=== PATIENT | male | born 1950 | race Hispanic/Latino ===

== ENCOUNTER 2018-01-15 01:42 | Observation (INO) | payer OTHER ==
[2018-01-15 01:47] VITALS: BMI 36.8
--- NOTE | 2018-01-15 01:56 | ED PDOC ---
HPI:STROKE - Time Time: 01:53 - Historian Historian: Patient - Chief Complaint Chief Complaint: Slurred speech - Onset Date: 01/15/18 Time: 01:20 Onset: Today - Timing Timing: Currently Symptomatic - Context Context: Sitting - Location Location: Speech (Slurred) - Radiation Radiation: None - Severity of pain Maximum severity:: None Severity Current: None - TPA Reason tPA is not being Administered: NIH score of ZERO s/p examination by neurologist. - Notes: Notes:: 67 y/o male presents to the ED complaining of lightheadedness associated with slurred speech and blurry vision, onset 35 minutes ago. Patient reports he was working as the [employer] when he began to feel symptoms. Denies weakness, numbness and headache. Denies chest pain, shortness of breath, vision changes currently. PMD: Dr. Christina NIHSS Stroke Scale - Date/Time Evaluation Performed Date Performed: 01/15/18 Time Performed: 02:10 When Was NIHSS Performed: Code Stroke - How Severe is the Stroke Level of Consciousness: 0=Alert LOC to Questions: 0=Both comments correct LOC to commands: 0=Obeys both correctly Best Gaze: 0=Normal Visual: 0=No visual loss Facial: 0=Normal Motor Arm - Left: 0=No drift Motor Arm - Right: 0=No drift Motor Leg - Left: 0=No drift Motor Leg - Right: 0=No drift Limb Ataxia: 0=Absent Sensory: 0=Normal Best Language: 0=No aphasia Dysarthia: 0=Normal articulation Extinction & Inattention (Neglect): 0=Normal, no object Score: 0 rTPA Inclusion/Exclusion - Refusal of Treatment Patient Refused Treatment: No - Inclusion Criteria for Altepase Patient is 18 years or Older: Yes The Clinical Diagnosis of Ischemic Stroke That is Causing a Potentially Disabling Neurological Deficit: Yes Time of Onset is Well Established to be Less Than 270 Minute Before Treatment Would Begin: Yes Risk/Benefit Discussed With Patient/Family Member Present: Yes - Exclusion Criteria for Altepase Active Internal Bleeding: No Evidence of an Intracranial Hemorrhage: No Past Medical History Reviewed: Historical Data, Nursing Documentation, Vital Signs Vital Signs: Last Vital Signs Temp 97.9 F 01/15/18 01:46 Pulse 102 H 01/15/18 01:46 Resp 18 01/15/18 01:46 BP 143/99 H 01/15/18 01:46 Pulse Ox 97 01/15/18 01:46 - Medical History PMH: Diabetes (Type II) - Surgical History Surgical History: Cholecystectomy - Family History Family History: States: Unknown Family Hx - Social History Current smoker - smoking cessation education provided: No Ex-Smoker (has not smoked in the last 12 months): Yes (8 years ago) Alcohol: Occasional Drugs: Denies - Home Medications Home Medications: Ambulatory Orders Medication Instructions Recorded metFORMIN [glucOPHAGE] 850 mg PO BID 01/15/18 - Allergies Allergies/Adverse Reactions: Allergies Allergy/AdvReac Type Severity Reaction Status Date / Time No Known Allergies Allergy Verified 01/15/18 01:46 Review of Systems ROS Statement: Except As Marked, All Systems Reviewed And Found Negative Eyes: Positive for: Vision Change Neurological: Positive for: Change in Speech, Other (Lightheadedness). Negative for: Weakness, Numbness, Headache Physical Exam - Reviewed Nursing Documentation Reviewed: Yes Vital Signs Reviewed: Yes - Physical Exam Appears: Positive for: No Acute Distress Head Exam: Positive for: ATRAUMATIC, NORMOCEPHALIC Skin: Positive for: Normal Color, Warm, Dry Eye Exam: Positive for: Normal appearance, EOMI, PERRL Neck: Positive for: Normal, Painless ROM Cardiovascular/Chest: Positive for: Regular Rate, Rhythm. Negative for: Murmur Respiratory: Positive for: Normal Breath Sounds. Negative for: Respiratory Distress Gastrointestinal/Abdominal: Positive for: Normal Exam, Soft. Negative for: Tenderness Back: Positive for: Normal Inspection. Negative for: L CVA Tenderness, R CVA Tenderness Extremity: Positive for: Normal ROM, Other (Strength 5/5 in all extremities). Negative for: Deformity Neurologic/Psych: Positive for: Alert, grid inspector II-XII, Oriented, Cerebellar Tests ( normal), Gait (normal). Negative for: Motor/Sensory Deficits, Aphasia, Facial Droop - Laboratory Results Result Diagrams: 01/15/18 02:00 01/15/18 02:00 - ECG ECG Rhythm: Positive for: Normal QRS, Normal ST Segment O2 Sat by Pulse Oximetry: 97 (RA) Pulse Ox Interpretation: Normal - Radiology X-Ray: Interpreted by Me, Viewed By Me X-Ray Interpretation: No Acute Disease - Critical Care Total Time (In Min): 60 Documented Critical Care: Time excludes all time spent performint seperately billable procedures Medical Decision Making Medical Decision Making: Time: 015 Patient presenting with slurred speech, dizziness -concerned for possible CVA v. TIA -currently ABCs intact, patient placed on monitor immediately and sent for CT -Neuro consult initiated Plan: -- Type and Screen -- CT Head w/o (CODE STROKE) -- EKG -- CMP -- HEMOGLOBIN A1C -- LIPID PANEL TROPONIN I -- STROKE TEAM CONSULT -- CBC with differentials -- PTT Prothrombin Time -- CXR Portable -- Glucose, POC -- Sodium Chloride IV 100 mls/hr -- Learning And Development Analyst -- IV Insertion -- ED Obtain Labs Stat -- Glucose, Blood, POC -- Nursing Swallow Screening -- Vital Signs Q15 min Time: 0205 CT HEAD RESULTS FINDINGS: Question mild increased density in the left MCA on image 16 series 4 Brain: Mild volume loss No hemorrhage. No significant white matter disease. No edema. Ventricles: Normal. No ventriculomegaly. Bones/joints: Normal. No acute fracture. Sinuses: Normal as visualized. No acute sinusitis. Mastoid air cells: Normal as visualized. No mastoid effusion. Soft tissues: Normal. IMPRESSION: Question mildly hyperdense left MCA. Thrombus cannot be completely excluded. Correlate for acute left MCA infarction. Further evaluation as clinically indicated No intracranial hemorrhage.Please see discussion above. Dictated and Authenticated by: Alan Lala MD 01/15/2018 2:05 AM Eastern Time ([place] & [place]) Time: 021 Dr. Murrieta reviewed patient via Teleneurology, recommendations below. Agrees that patient is not candidate for TPA Plan: -- CTA Head/Neck Code Stroke -- Plavix 300 mg PO -- Sodium Chloride IV 100 mls/hr -- Aspirin 81 mg PO -- admit [Admit to Hospital] Routine Time: 244 CTA HEAD RESULTS FINDINGS: Right internal carotid artery: No acute findings. Atherosclerosis. Intracranial segment is patent with no significant stenosis. No aneurysm. Right anterior cerebral artery: No occlusion or significant stenosis. No aneurysm. Right middle cerebral artery: No occlusion or significant stenosis. No aneurysm. Right posterior cerebral artery: No occlusion or significant stenosis. No aneurysm. Right vertebral artery: Unremarkable as visualized. Left internal carotid artery: No acute findings. Atherosclerosis. Intracranial segment is patent with no significant stenosis. No aneurysm. Left anterior cerebral artery: No occlusion or significant stenosis. No aneurysm. Left middle cerebral artery: No occlusion or significant stenosis. No aneurysm. Left posterior cerebral artery:No occlusion or significant stenosis. No aneurysm. Left vertebral artery: Unremarkable as visualized. Basilar artery: No occlusion or significant stenosis. No aneurysm. IMPRESSION: No evidence for arterial occlusion or significant stenosis * Time: 244 CTA NECK RESULTS FINDINGS: VASCULATURE: Right common carotid artery: No significant stenosis. No dissection or occlusion. Right internal carotid artery: Minimal calcified plaque Extracranial segment is patent with no significant stenosis. No dissection or occlusion. Right external carotid artery: Unremarkable. No occlusion. Right vertebral artery: No significant stenosis. No dissection or occlusion. Left common carotid artery: No significant stenosis. No dissection or occlusion. Left internal carotid artery: Mild calcified plaque Extracranial segment is patent with no significant stenosis. No dissection or occlusion. Left external carotid artery: Unremarkable. No occlusion. Left vertebral artery: No significant stenosis. No dissection or occlusion. NECK: Bones/joints: No acute fracture. No dislocation. Soft tissues: Enlargement of the right lobe of the thyroid with superior mediastinal extension and mixed attenuation nodule measuring up to 12 mm CAROTID STENOSIS REFERENCE USING NASCET CRITERIA: % ICA stenosis = (1 - narrowest ICA diameter/diameter of distal cervical ICA) x 100. Mild - <50% stenosis. Moderate - 50-69% stenosis. Severe - 70-94% stenosis. Near occlusion - 95-99% stenosis. Occluded - 100% stenosis. IMPRESSION: No hemodynamically significant stenosis Incidental right-sided thyroid nodule as noted which may be further characterized on a nonurgent basis Thank you for allowing us to participate in the care of your patient. Dictated and Authenticated by: Alan Lala MD 01/15/2018 2:45 AM Eastern Time ([place] & [place]) Patient reports improvement in symptoms Case discussed with Dr. Cuevas who accepts admission Scribe Attestation: Documented by Nilton Bee acting as a scribe for Dr. Ted Morales MD. Provider Scribe Attestation: All medical record entries made by the Scribe were at my direction and personally dictated by me. I have reviewed the chart and agree that the record accurately reflects my personal performance of the history, physical exam, medical decision making, and the department course for this patient. I have also personally directed, reviewed, and agree with the discharge instructions and disposition. Disposition - Clinical Impression Clinical Impression: Slurred speech, Transient ischemic attack - Patient ED Disposition Is Patient to be Admitted: Yes - Disposition Disposition Time: 02:15 Condition: FAIR
[2018-01-15 02:16] LABS: BASO # 0.1 K/uL (0.0-0.2); BASO % 1.3 % (0.0-2.0); EOS # 0.2 K/uL (0.0-0.7); EOS % 2.2 % (0.0-4.0); HEMOGLOBIN 14.1 g/dL (12.0-18.0); LYMPH # 2.4 K/uL (1.0-4.3); LYMPH % 30.5 % (20.0-40.0); MEAN CELL VOLUME 83.6 fl (80.0-94.0); MEAN CORPUSCULAR HGB CONC 33.5 g/dL (33.0-37.0); MEAN PLATELET VOLUME 9.8 fl (7.2-11.7); MONO # 0.8 K/uL (0.0-0.8); MONO % 9.8 % (0.0-10.0); NEUT # 4.5 K/uL (1.8-7.0); NEUT % 56.2 % (50.0-75.0); NRBC % 0.1 % (0.0-0.0); RBC 5.04 Mil/uL (4.40-5.90); RED CELL DISTRIBUTION WIDTH 15.4 % (11.5-14.5)
[2018-01-15] MEDS: Sodium Chloride 0.9% 1,000 ML IV SCH ×3 (02:17→21:28)
[2018-01-15] MEDS ORDERED: Sodium Chloride 0.9% 1,000 ML IV STA (02:19)
[2018-01-15] MEDS ORDERED: Sodium Chloride 0.9% 50 ML IV ONE (02:20)
[2018-01-15] MEDS ORDERED: Iodixanol 320 MG/ML 100 ML BOTTLE IV ONE (02:20)
[2018-01-15 02:25] LABS: ALB/GLOB RATIO 1.3 (1.0-2.1); ALBUMIN 4.6 g/dL (3.5-5.0); CALCIUM 9.4 mg/dL (8.4-10.2); GFR AFRICAN-AMERICAN > 60; GFR NON-AFRICAN AMERICAN > 60; HDL CHOLESTEROL 46 MG/DL (30-70)
--- NOTE | 2018-01-15 02:26 | CP.PCM.CON ---
History of Present Illness - History of Present Illness History of Present Illness: Tele-Stroke Consultation Note: This is a telehealth visit conducted via [employer] bi-directional video conference. Mr. Nelson is a 67-year-old man with a past medical history of DM, who states that he noticed light-headedness and slurred speech about 30 minutes prior to arrival to the ED. His symptoms started to resolve, and by the time he was seen by the ED attending, his NIHSS was 0. When I saw the patient, he stated that he was feeling better and I did not notice any significant neurological deficits. CT scan of the head did not show any acute changes, but radiology was concerned for a possible left MCA hyperdensity. Review of Systems - Review of Systems All systems: reviewed and no additional remarkable complaints except Meds Allergies/Adverse Reactions: Allergies Allergy/AdvReac Type Severity Reaction Status Date / Time No Known Allergies Allergy Verified 01/15/18 01:46 - Medications Medications: Current Medications Aspirin (Aspirin Chewable) 81 mg PO STAT STA Stop: 01/15/18 02:19 Clopidogrel Bisulfate (Plavix) 300 mg PO ONCE ONE Stop: 01/15/18 02:19 Sodium Chloride (Sodium Chloride 0.9%) 1,000 mls @ 100 mls/hr IV .Q10H MARIBEL Last Admin: 01/15/18 02:17 Dose: 100 mls/hr Sodium Chloride (Sodium Chloride 0.9%) 1,000 mls @ 100 mls/hr IV .Q10H STA Stop: 01/15/18 12:18 Physical Exam - Neurological Exam Neurological exam: Alert, CN II-XII Intact, Oriented x3 Additional comments: Speech is fluent and not dysarthric. Visual aponte are intact. Sensation is intact throughout. Strength is symmetrical, coordination is intact. NIHSS = 0 - Psychiatric Exam Psychiatric exam: Normal Affect, Normal Mood Results - Vital Signs Recent Vital Signs: Last Vital Signs Temp 97.9 F 01/15/18 01:46 Pulse 93 H 01/15/18 02:14 Resp 18 01/15/18 02:14 BP 153/88 H 01/15/18 02:14 Pulse Ox 97 01/15/18 02:19 - Labs Result Diagrams: 01/15/18 02:00 Labs: Laboratory Results - last 24 hr 08/01/18 08/01/18 01:50 02:00 WBC 8.0 RBC 5.04 Hgb 14.1 Hct 42.1 MCV 83.6 MCH 28.0 MCHC 33.5 RDW 15.4 H Plt Count 187 MPV 9.8 Neut % (Auto) 56.2 Lymph % (Auto) 30.5 [place] % (Auto) 9.8 Eos % (Auto) 2.2 Baso % (Auto) 1.3 Neut # (Auto) 4.5 Lymph # (Auto) 2.4 [place] # (Auto) 0.8 Eos # (Auto) 0.2 Baso # (Auto) 0.1 POC Glucose (mg/dL) 158 H Assessment & Plan (1) Transient ischemic attack Assessment and Plan: Considering his symptoms were of sudden onset and lasted nearly an hour, I recommend the followin. Telemetry and Q1 hour neuro-checks 2. STAT CTA of the head/neck 3. MRI brain without contrast 4. Aspirin 81 mg now and load with Plavix 300 mg; continue aspirin 81 mg daily and Plavix 75 mg daily for 21 days. Then, aspirin 81 mg indefinitely per the CHANCE trial. 5. Check HbA1c, Lipid panel, B12, folate, vitamin D and homocysteine levels 6. PT/OT eval 7. Fluids with NS at 100 mL/hr 8. Statin for LDL<70 9. Echocardiogram 10. Case management consult Thank you. Status: Acute Priority: High
[2018-01-15 02:27] LABS: PARTIAL THROMBOPLASTIN TIME 32.9 Seconds (25.6-37.1); PROTHROMBIN TIME 11.5 Seconds (9.8-13.1)
[2018-01-15 02:35] LABS: LDL CHOLESTEROL 75 mg/dL (0-129)
[2018-01-15 02:43] LABS: ALT/SGPT 30 U/L (21-72); AST/SGOT 38 U/L (17-59); BLOOD UREA NITROGEN 17 mg/dl (9-20)
--- NOTE | 2018-01-15 04:08 | CP.PCM.HP ---
"History of Present Illness - History of Present Illness History of Present Illness: PMD: Greg Christina MD Chief Complaint: Slurred Speech The patient was seen and examined in the Ed HPI: 67 years old male with Hx of DM II, comes with 30mins of sudden unset of slurred speech with lightheadedness and blurring of the vision. no weakness of the extremities, no chest pain nor SOB, no headache. His symptoms were 75% relieved on arriving at the ED and completely resolved 20mins later. his NIHSS score was 0 in the ED. PMH: DM II PSH: Cholecystectomy SH: former Smoker; No alcohol; No illegal drug use; Live alone; work as a dispatcher for [employer]; Mother with dementia father with lung Cancer and NH Allergies: NKDA Medication: Reviewed Present on Admission - Present on Admission Any Indicators Present on Admission: No History of DVT/PE: No History of Uncontrolled Diabetes: No Urinary Catheter: No Decubitus Ulcer Present: No Review of Systems - Constitutional Constitutional: absent: Chills, Fever, Headache, Lethargy - EENT Eyes: Requires Corrective Lenses. absent: Blurred Vision, Diplopia, Floaters Ears: absent: Decreased Hearing, Ear Discharge, Tinnitus Nose/Mouth/Throat: absent: Epistaxis, Nasal Congestion - Cardiovascular Cardiovascular: Edema. absent: Chest Pain, Dyspnea, Lightheadedness - Respiratory Respiratory: absent: Cough, Dyspnea, Wheezing, Stridor - Gastrointestinal Gastrointestinal: absent: Constipation, Diarrhea, Nausea, Vomiting - Genitourinary Genitourinary: absent: Dysuria, Flank Pain, Urinary Frequency - Musculoskeletal Musculoskeletal: absent: Arthralgias, Myalgias, Stiffness - Integumentary Integumentary: absent: Pruritus, Rash, Skin Ulcer, Sores, Striae - Neurological Neurological: Dizziness. absent: Headaches Additional comments: Slurred speech, dizziness and lightheadedness - Psychiatric Psychiatric: absent: Anxiety, Depression, Panic Attacks - Endocrine Endocrine: absent: Palpitations, Polydipsia, Polyphagia, Polyuria - Hematologic/Lymphatic Hematologic: absent: Easy Bleeding, Easy Bruising Past Patient History - Past Medical History & Family History Past Medical History?: Yes - Past Social History Smoking Status: Former Smoker Chewing Tobacco Use: No Cigar Use: No Alcohol: Occasional Drugs: Denies Home Situation {Lives}: Alone - CARDIAC Hx Cardiac Disorders: No - PULMONARY Hx Respiratory Disorders: No - NEUROLOGICAL Hx Neurological Disorder: No - HEENT Hx HEENT Problems: No - RENAL Hx Chronic Kidney Disease: No - ENDOCRINE/METABOLIC Hx Diabetes Mellitus Type 2: Yes - HEMATOLOGICAL/ONCOLOGICAL Hx Blood Disorders: No - INTEGUMENTARY Hx Dermatological Problems: No - MUSCULOSKELETAL/RHEUMATOLOGICAL Hx Musculoskeletal Disorders: No - GASTROINTESTINAL Hx Gastrointestinal Disorders: No - GENITOURINARY/GYNECOLOGICAL Hx Genitourinary Disorders: No - PSYCHIATRIC Hx Psychophysiologic Disorder: No Hx Substance Use: No - SURGICAL HISTORY Hx Cholecystectomy: Yes - ANESTHESIA Hx Anesthesia: Yes Hx Anesthesia Reactions: No Meds Allergies/Adverse Reactions: Allergies Allergy/AdvReac Type Severity Reaction Status Date / Time No Known Allergies Allergy Verified 01/15/18 01:46 Physical Exam - Constitutional Appears: No Acute Distress - Head Exam Head Exam: ATRAUMATIC, NORMAL INSPECTION, NORMOCEPHALIC - Eye Exam Eye Exam: EOMI, Normal appearance Pupil Exam: NORMAL ACCOMODATION, PERRL - ENT Exam ENT Exam: Mucous Membranes Moist, Normal Exam - Neck Exam Neck exam: Positive for: Full Rom, Normal Inspection. Negative for: Lymphadenopathy, Tenderness - Respiratory Exam Respiratory Exam: Clear to Auscultation Bilateral. absent: Rales, Rhonchi, Wheezes - Cardiovascular Exam Cardiovascular Exam: REGULAR RHYTHM, +S1, +S2. absent: Gallop - GI/Abdominal Exam GI & Abdominal Exam: Normal Bowel Sounds, Soft. absent: Mass, Organomegaly, Tenderness - Rectal Exam Rectal Exam: Deferred - Extremities Exam Extremities exam: Positive for: full ROM, normal inspection Additional comments: Trace edema at the right lower extremity - Back Exam Back exam: NORMAL INSPECTION. absent: CVA tenderness (L), CVA tenderness (R) - Neurological Exam Neurological exam: Alert, CN II-XII Intact, Oriented x3, Reflexes Normal - Psychiatric Exam Psychiatric exam: Normal Affect, Normal Mood - Skin Skin Exam: Dry, Intact, Normal Color, Warm Results - Vital Signs Recent Vital Signs: Last Vital Signs Temp 97.9 F 01/15/18 01:46 Pulse 93 H 01/15/18 02:16 Resp 18 01/15/18 02:16 BP 146/98 H 01/15/18 02:16 Pulse Ox 97 01/15/18 02:53 - Labs Result Diagrams: 01/15/18 02:00 01/15/18 02:00 Labs: Laboratory Results - last 24 hr 01/15/18 01/15/18 01/15/18 01:50 02:00 02:00 WBC 8.0 RBC 5.04 Hgb 14.1 Hct 42.1 MCV 83.6 MCH 28.0 MCHC 33.5 RDW 15.4 H Plt Count 187 MPV 9.8 Neut % (Auto) 56.2 Lymph % (Auto) 30.5 [place] % (Auto) 9.8 Eos % (Auto) 2.2 Baso % (Auto) 1.3 Neut # (Auto) 4.5 Lymph # (Auto) 2.4 [place] # (Auto) 0.8 Eos # (Auto) 0.2 Baso # (Auto) 0.1 PT INR APTT Sodium 141 Potassium 4.5 Chloride 102 Carbon Dioxide 25 Anion Gap 19 BUN 17 Creatinine 0.9 Est GFR ( Amer) > 60 Est GFR (Non-Af Amer) > 60 POC Glucose (mg/dL) 158 H Random Glucose 158 H Calcium 9.4 Total Bilirubin 0.8 AST 38 ALT 30 Alkaline Phosphatase 102 Troponin I < 0.0120 Total Protein 8.2 Albumin 4.6 Globulin 3.6 Albumin/Globulin Ratio 1.3 Triglycerides 111 Cholesterol 146 LDL Cholesterol Direct 75 HDL Cholesterol 46 Blood Type Antibody Screen BBK History Checked 01/15/18 01/15/18 02:00 02:00 WBC RBC Hgb Hct MCV MCH MCHC RDW Plt Count MPV Neut % (Auto) Lymph % (Auto) [place] % (Auto) Eos % (Auto) Baso % (Auto) Neut # (Auto) Lymph # (Auto) [place] # (Auto) Eos # (Auto) Baso # (Auto) PT 11.5 INR 1.0 APTT 32.9 Sodium Potassium Chloride Carbon Dioxide Anion Gap BUN Creatinine Est GFR ( Amer) Est GFR (Non-Af Amer) POC Glucose (mg/dL) Random Glucose Calcium Total Bilirubin AST ALT Alkaline Phosphatase Troponin I Total Protein Albumin Globulin Albumin/Globulin Ratio Triglycerides Cholesterol LDL Cholesterol Direct HDL Cholesterol Blood Type O POSITIVE Antibody Screen Negative BBK History Checked No verified bt - Imaging and Cardiology CT scan - head Status: Image reviewed by me, Report reviewed by me Additional comment: EXAM: CT Head Without Intravenous Contrast EXAM DATE/TIME: 01/15/2018 1:47 AM FINDINGS: Question mild increased density in the left MCA on image 16 series 4 Brain: Mild volume loss No hemorrhage. No significant white matter disease. No edema. Ventricles: Normal. No ventriculomegaly. Bones/joints: Normal. No acute fracture. Sinuses: Normal as visualized. No acute sinusitis. Mastoid air cells: Normal as visualized. No mastoid effusion. Soft tissues: Normal. IMPRESSION: Question mildly hyperdense left MCA. Thrombus cannot be completely excluded. Correlate for acute left MCA infarction. Further evaluation as clinically indicated CTA Head & Neck Additional comment: EXAM: CT Angiography Head With Intravenous Contrast CLINICAL HISTORY: FINDINGS: Right internal carotid artery: No acute findings. Atherosclerosis. Intracranial segment is patent with no significant stenosis. No aneurysm. Right anterior cerebral artery: No occlusion or significant stenosis. No aneurysm. Right middle cerebral artery: No occlusion or significant stenosis. No aneurysm. Right posterior cerebral artery: No occlusion or significant stenosis. No aneurysm. Right vertebral artery: Unremarkable as visualized. Left internal carotid artery: No acute findings. Atherosclerosis. Intracranial segment is patent with no significant stenosis. No aneurysm. Left anterior cerebral artery: No occlusion or significant stenosis. No aneurysm. Left middle cerebral artery: No occlusion or significant stenosis. No aneurysm. Left posterior cerebral artery:No occlusion or significant stenosis. No aneurysm. Left vertebral artery: Unremarkable as visualized. Basilar artery: No occlusion or significant stenosis. No aneurysm. IMPRESSION: No evidence for arterial occlusion or significant stenosis MITCHEL GODIENZ | Preliminary Radiology Report Page 2 of 3 EXAM: CT Angiography Neck With Intravenous Contrast CLINICAL HISTORY: FINDINGS: VASCULATURE: Right common carotid artery: No significant stenosis. No dissection or occlusion. Right internal carotid artery: Minimal calcified plaque Extracranial segment is patent with no significant stenosis. No dissection or occlusion. Right external carotid artery: Unremarkable. No occlusion. Right vertebral artery: No significant stenosis. No dissection or occlusion. Left common carotid artery: No significant stenosis. No dissection or occlusion. Left internal carotid artery: Mild calcified plaque Extracranial segment is patent with no significant stenosis. No dissection or occlusion. Left external carotid artery: Unremarkable. No occlusion. Left vertebral artery: No significant stenosis. No dissection or occlusion. NECK: Bones/joints: No acute fracture. No dislocation. Soft tissues: Enlargement of the right lobe of the thyroid with superior mediastinal extension and mixed attenuation nodule measuring up to 12 mm CAROTID STENOSIS REFERENCE USING NASCET CRITERIA: % ICA stenosis = (1 - narrowest ICA diameter/diameter of distal cervical ICA) x 100. Mild - <50% stenosis. Moderate - 50-69% stenosis. Severe - 70-94% stenosis. Near occlusion - 95-99% stenosis. Occluded - 100% stenosis. IMPRESSION: No hemodynamically significant stenosis Incidental right-sided thyroid nodule as noted which may be further characterized on a nonurgent basis Chest x-ray Status: Image reviewed by me Additional comment: Left lung base infiltate, most probably atelectasis Assessment & Plan - Assessment and Plan (Free Text) Assessment: #. TIA #. CM II Plan: 67 years old male with Hx of DM II, comes with 30mins of sudden unset of slurred speech with lightheadedness and blurring of the vision. no weakness of the extremities, no chest pain nor SOB, no headache. His symptoms were 75% relieved on arriving at the ED and completely resolved 20mins later. his NIHSS score was 0 in the ED. #. TIA r/o CVA - Consult Neurology DDr Koria - CT head : Hyperdense MCA crrelation for acute Left MCA infarct - CTA Head and Neck: No significant stenosis - MRI head to follow - Neuro check Q1H - ECHO with bubble study - ASA - Plavix - Lipitor - OT/PT #. Dm II - Lispro insulin sliding scale according to Accucheck - Meformin - HbA1c #. DVT prophylaxis with Lovenox #. Code Status: Full - Date & Time Date: 01/15/18 Time: 04:08"
[2018-01-15] MEDS: Insulin Lispro (humaLOG) 100 Units/ml Inj SC SCH ×4 (08:25→22:00)
[2018-01-15] MEDS: Enoxaparin 40 mg Syringe SC SCH (08:30)
--- NOTE | 2018-01-15 09:29 | CARD ---
APPROVED REPORT Date of service: 01/15/2018 EKG Measurement Heart [id number] <Conclusion> Normal sinus rhythm Normal ECG
--- NOTE | 2018-01-15 10:04 | CT ---
Date of service: 01/15/2018 PROCEDURE: CT HEAD WITHOUT CONTRAST. HISTORY: code stroke COMPARISON: None available. TECHNIQUE: Axial computed tomography images were obtained through the head/brain without intravenous contrast. Radiation dose: Total exam DLP = 827 mGy-cm. This CT exam was performed using one or more of the following dose reduction techniques: Automated exposure control, adjustment of the mA and/or kV according to patient size, and/or use of iterative reconstruction technique. FINDINGS: HEMORRHAGE: No intracranial hemorrhage. BRAIN: No mass effect or edema. Mild cerebral atrophy present. No gross microvascular ischemic change apparent. Bilateral nonspecific basal ganglionic calcifications present VENTRICLES: Unremarkable. No hydrocephalus. CALVARIUM: Unremarkable. PARANASAL SINUSES: Unremarkable as visualized. No significant inflammatory changes. MASTOID AIR CELLS: Unremarkable as visualized. No inflammatory changes. OTHER FINDINGS: All of the [place] vessels appear hyperdense nodule in the left middle cerebral but also to perhaps a slightly lesser conspicuity the right middle cerebral artery there is calcification of beach cavernous internal carotid arterial segments. IMPRESSION: No intracranial hemorrhage or mass effect. cerebral atrophy. Depending on clinical presentation, consider MRI of the brain with diffusion-weighted imaging for more sensitive evaluation for any subtle acute infarct changes. Atherosclerotic vascular calcifications present. . Concordant results (preliminary interpretation) provided by [facility].
--- NOTE | 2018-01-15 10:11 | RAD ---
Date of service: 01/15/2018 HISTORY: Code Stroke COMPARISON: No prior. FINDINGS: LUNGS: Bandlike opacity left lung base PLEURA: No significant pleural effusion identified, no pneumothorax apparent. CARDIOVASCULAR: Mild cardiomegaly OSSEOUS STRUCTURES: Mild thoracic spondylosis. VISUALIZED UPPER ABDOMEN: Normal. OTHER FINDINGS: Large body habitus IMPRESSION: Left basal bandlike opacity compatible with subsegmental atelectasis and or infiltrate. Summation of the bronchovascular markings with the subjacent left posterior rib can also contribute to this in this patient with large body habitus. Clinical follow-up recommended
[2018-01-15] MEDS ORDERED: Perflutren Lipid Microsphere 1.5 ML SUS IV ONE (10:16)
--- NOTE | 2018-01-15 10:56 | MRI ---
Date of service: 01/15/2018 PROCEDURE: MRI BRAIN WITHOUT CONTRAST HISTORY: Slurred speech/dizziness COMPARISON: Noncontrast head CT from 01/15/2018 TECHNIQUE: Multiplanar, multisequence MR images of the brain were obtained without intravenous contrast enhancement. FINDINGS: HEMORRHAGE: None DWI: No evidence of an acute or early subacute infarction. BRAIN PARENCHYMA: There are mild chronic microangiopathic changes. There is no mass, mass effect or abnormal extra-axial fluid collection. There is no territorial infarction. The midline sagittal structures are normal. VENTRICLES: There is moderate age-related global parenchymal volume loss and proportionate enlargement of the ventricles and cortical sulci. CRANIUM: There is normal bone marrow signal pattern. ORBITS: Grossly unremarkable. PARANASAL SINUSES/MASTOIDS: Predominantly clear. VASCULAR SYSTEM: There are normal signal voids in the larger intracranial arteries. OTHER FINDINGS: None. IMPRESSION: No acute intracranial abnormality. Mild chronic microangiopathic changes and moderate age-related global parenchymal volume loss.
--- NOTE | 2018-01-15 11:51 | CT ---
PROCEDURE: CTA HEAD AND NECK WITH CONTRAST HISTORY: slurred speech COMPARISON: None available. TECHNIQUE: Initial noncontrast head CT was performed. Subsequently, CT angiogram of the head and neck were performed after the intravenous administration of 80 mL of Omnipaque 350. Contiguous 1.5mm thick images were obtained in the axial plane of the neck. 2-D coronal and sagittal MPR images were obtained. Imaging postprocessing was performed with 3-D images also obtained. A delayed contrast head CT was also obtained. This CT exam was performed using one or more of the following dose reduction techniques: Automated exposure control, adjustment of the mA and/or kV according to patient size, and/or use of iterative reconstruction technique. Contrast dose: 95 mL Visipaque 320 Radiation dose: Total exam DLP = 2222.21 mGy-cm. FINDINGS: HEAD: Right: The intracranial internal carotid artery, and anterior and middle cerebral arteries are widely patent. Left: The intracranial internal carotid artery, and anterior and middle cerebral arteries are widely patent. The A1 segment is hypoplastic, an anatomic variant. Posterior circulation: The visualized intracranial vertebral arteries, basilar artery and posterior cerebral arteries are widely patent. There is no endoluminal filling defect to suggest thrombus. There is no intracranial saccular aneurysm. There is no abnormal enhancement on the postcontrast CT. NECK: There is a two vessel aortic arch with common origin of the innominate and left subclavian arteries. There is no stenosis at the origins of the great vessels at the level of the aortic arch. Right Carotid: On the right, the common carotid, internal carotid and external carotid arteries are widely patent. There is no hemodynamically significant stenosis in the internal carotid artery by NASCET criteria. Left Carotid: On the left, the common carotid, internal carotid and external carotid arteries are widely patent.There is no hemodynamically significant stenosis in the internal carotid arteries. There is no hemodynamically significant stenosis in the internal carotid artery by NASCET criteria. The vertebral arteries are widely patent. The vertebral artery is hypoplastic, an anatomic variant. The visualized soft tissues of the neck are normal. The visualized brain and cervical spine are within normal limits. The lung apices are clear. There is a low-attenuation nodule in the right thyroid lobe. IMPRESSION: 1. No evidence of endoluminal thrombus,occlusion or definite significant stenosis in the intracranial arteries. 2. No evidence of hemodynamically significant stenosis in the internal carotid arteries. 3. Patent bilateral vertebral arteries. 4. Indeterminate nodule in the right thyroid lobe, a dedicated thyroid ultrasound on a nonemergent basis is recommended for further characterization.
--- NOTE | 2018-01-15 17:35 | CARD ---
APPROVED REPORT Date of service: 01/15/2018 EXAM: Two-dimensional and M-mode echocardiogram with Doppler, color Doppler with contrast. Other Information Quality : AverageRhythm : Tachycardia Technically limited study due to body habitus. INDICATION CVA/TIA W/Bubble Study Echo Enhancing Agent Indication: Endocardial border delineation/PFO Agent/Amount Used: Agitated Saline/Definity 2D DIMENSIONS IVSd1.25 (0.7-1.1cm)LVDd4.63 (3.9-5.9cm) LVOT Diameter2.30 (1.8-2.4cm)PWd1.23 (0.7-1.1cm) IVSs1.82 (0.8-1.2cm)LVDs2.24 (2.5-4.0cm) FS (%) 51.6 %PWs1.75 (0.8-1.2cm) M-Mode DIMENSIONS Left Atrium (MM)3.98 (2.5-4.0cm)IVSd0.91 (0.7-1.1cm) Aortic Root3.70 (2.2-3.7cm)LVDd6.36 (4.0-5.6cm) Aortic Cusp Exc.2.20 (1.5-2.0cm)PWd0.98 (0.7-1.1cm) IVSs1.50 cmFS (%) 32 % LVDs4.30 (2.0-3.8cm)PWs1.43 cm Aortic Valve AoV Peak Hmxsqfwk513.7cm/sAoV VTI20.8cmAO Peak GR.9mmHg LVOT Peak Qodtlfty02.9cm/sLVOT VTI14.11cmAO Mean GR.5mmHg SAHARA (VMAX)1.83bw1TLI (VTI)1.16cm2 Mitral Valve MV E Vrhjcgng35.1cm/sMV DECEL AINC277mgZE A Bbqnafex39.6cm/s MV PRT00rwI/A ratio0.7MVA (PHT)4.26cm2 TDI Lateral E' Peak V9.98cm/sMedial E' Peak V5.79cm/sE/Lateral E'6.1 E/Medial E'10.6 Pulmonary Valve PV Peak Mjbrxoln051.4cm/s LEFT VENTRICLE The left ventricle is normal size. There is mild concentric left ventricular hypertrophy. The left ventricular function is normal. The left ventricular ejection fraction is within the normal range. There is normal LV segmental wall motion. Tissue Doppler imaging reveals mild left ventricular diastolic dysfunction. Transmitral Doppler flow pattern is Grade I-abnormal relaxation pattern. No left ventricle thrombus noted on this study. There is no ventricular septal defect visualized. There is no left ventricular aneurysm. There is no mass noted in the left ventricle.ggggg RIGHT VENTRICLE The right ventricle is normal size. The right ventricular systolic function is normal.gg ATRIA The left atrium size is normal. The right atrium size is normal. AORTIC VALVE The aortic valve is normal in structure. No aortic regurgitation is present. There is no aortic valvular stenosis. MITRAL VALVE The mitral valve is normal in structure. There is no evidence of mitral valve prolapse. There is no mitral valve stenosis. Mitral regurgitation is trace TRICUSPID VALVE The tricuspid valve is normal in structure. There is trace tricuspid regurgitation. There is no pulmonary hypertension. PULMONIC VALVE The pulmonary valve is normal in structure. There is no pulmonic valvular regurgitation. GREAT VESSELS The aortic root is normal in size. The IVC is normal in size and collapses >50% with inspiration. PERICARDIAL EFFUSION The pericardium appears normal. <Conclusion> Normal LV systoloic function with mild diastolic dysfunction. There is trace mitral and tricuspid regurgitation
--- NOTE | 2018-01-16 00:49 | CP.PCM.PN ---
Subjective - Date & Time of Evaluation Date of Evaluation: 01/16/18 Time of Evaluation: 00:46 - Subjective Subjective: Mr. Nelson was seen and examined today at bedside. I discussed the MRI findings (no acute findings) with him. He was back to baseline with no residual deficits. No new events noted. Objective - Vital Signs/Intake and Output Vital Signs (last 24 hours): Temp Pulse Resp BP Pulse Ox 97.7 F 88 18 125/79 95 01/16/18 00:15 01/16/18 00:15 01/16/18 00:15 01/16/18 00:15 01/16/18 00:15 - Medications Medications: Current Medications Aspirin (Ecotrin) 81 mg PO DAILY@1500 [facility] Last Admin: 01/15/18 14:49 Dose: 81 mg Atorvastatin Calcium (Lipitor) 20 mg PO HS [facility] Last Admin: 01/15/18 21:27 Dose: 20 mg Clopidogrel Bisulfate (Plavix) 75 mg PO DAILY@1500 [facility] Last Admin: 01/15/18 14:49 Dose: 75 mg Cyanocobalamin (Vitamin B12 1000 Mcg/Ml Inj) 1,000 mcg IM DAILY [facility] Stop: 01/17/18 09:01 Last Admin: 01/15/18 17:00 Dose: 1,000 mcg Enoxaparin Sodium (Lovenox) 40 mg SC DAILY [facility] PRN Reason: Protocol Last Admin: 01/15/18 08:30 Dose: 40 mg Sodium Chloride (Sodium Chloride 0.9%) 1,000 mls @ 100 mls/hr IV .Q10H [facility] Last Admin: 01/15/18 21:28 Dose: 100 mls/hr Insulin Human Lispro (Humalog) 0 units SC ACHS [facility] PRN Reason: Protocol Last Admin: 01/15/18 17:12 Dose: Not Given Metformin HCl (Glucophage) 850 mg PO BID [facility] Last Admin: 01/15/18 17:00 Dose: 850 mg - Labs Labs: 01/15/18 02:00 01/15/18 02:00 PT 11.5 Seconds (9.8-13.1) 01/15/18 02:00 INR 1.0 01/15/18 02:00 APTT 32.9 Seconds (25.6-37.1) 01/15/18 02:00 - Neurological Exam Neurological Exam: Alert, Awake, CN II-XII Intact, Normal Gait, Oriented x3, Reflexes Normal Neuro motor strength exam: Left Upper Extremity: 5, Right Upper Extremity: 5, Left Lower Extremity: 5, Right Lower Extremity: 5 Assessment and Plan (1) Transient ischemic attack Assessment & Plan: Will continue work-up for TIA. Continue Aspirin and Plavix per CHANCE trial. Will likely discharge home for outpatient follow-up if remaining studies are normal. Status: Acute
[2018-01-16 06:25] LABS: HEMOGLOBIN 13.6 g/dL (12.0-18.0); MEAN CELL VOLUME 83.8 fl (80.0-94.0); MEAN CORPUSCULAR HEMOGLOBIN 28.1 pg (27.0-31.0); MEAN CORPUSCULAR HGB CONC 33.5 g/dL (33.0-37.0); RBC 4.85 Mil/uL (4.40-5.90); RED CELL DISTRIBUTION WIDTH 15.1 % (11.5-14.5); WHITE BLOOD COUNT 7.1 K/uL (4.8-10.8)
[2018-01-16 06:46] LABS: BLOOD UREA NITROGEN 14 mg/dl (9-20); CALCIUM 8.9 mg/dL (8.4-10.2); GFR AFRICAN-AMERICAN > 60; GFR NON-AFRICAN AMERICAN > 60
[2018-01-16] MEDS: Insulin Lispro (humaLOG) 100 Units/ml Inj SC SCH (08:44)
[2018-01-16] MEDS: Enoxaparin 40 mg Syringe SC SCH (08:45)
[2018-01-16] MEDS: Sodium Chloride 0.9% 1,000 ML IV SCH (09:22)
--- NOTE | 2018-01-16 10:03 | CP.PCM.DIS ---
Provider - Provider Date of Admission: 01/15/18 02:18 Attending physician: Marc Cuevas Primary care physician: Greg Christina MD Consults: Neuro : Dr Murrieta Time Spent in preparation of Discharge (in minutes): 30 Diagnosis - Discharge Diagnosis (1) Transient ischemic attack Status: Acute Priority: High (2) DM type 2 (diabetes mellitus, type 2) Status: Chronic (3) Severe obesity with body mass index (BMI) of 36.0 to 36.9 with serious comorbidity Status: Chronic (4) B12 deficiency Status: Acute Hospital Course - Lab Results Lab Results: Most Recent Lab Values WBC 7.1 K/uL (4.8-10.8) 01/16/18 05:20 RBC 4.85 Mil/uL (4.40-5.90) 01/16/18 05:20 Hgb 13.6 g/dL (12.0-18.0) 01/16/18 05:20 Hct 40.7 % (35.0-51.0) 01/16/18 05:20 MCV 83.8 fl (80.0-94.0) 01/16/18 05:20 MCH 28.1 pg (27.0-31.0) 01/16/18 05:20 MCHC 33.5 g/dL (33.0-37.0) 01/16/18 05:20 RDW 15.1 % (11.5-14.5) H 01/16/18 05:20 Plt Count 161 K/uL (130-400) 01/16/18 05:20 MPV 9.8 fl (7.2-11.7) 01/15/18 02:00 Neut % (Auto) 56.2 % (50.0-75.0) 01/15/18 02:00 Lymph % (Auto) 30.5 % (20.0-40.0) 01/15/18 02:00 Ward % (Auto) 9.8 % (0.0-10.0) 01/15/18 02:00 Eos % (Auto) 2.2 % (0.0-4.0) 01/15/18 02:00 Baso % (Auto) 1.3 % (0.0-2.0) 01/15/18 02:00 Neut # (Auto) 4.5 K/uL (1.8-7.0) 01/15/18 02:00 Lymph # (Auto) 2.4 K/uL (1.0-4.3) 01/15/18 02:00 Ward # (Auto) 0.8 K/uL (0.0-0.8) 01/15/18 02:00 Eos # (Auto) 0.2 K/uL (0.0-0.7) 01/15/18 02:00 Baso # (Auto) 0.1 K/uL (0.0-0.2) 01/15/18 02:00 PT 11.5 Seconds (9.8-13.1) 01/15/18 02:00 INR 1.0 01/15/18 02:00 APTT 32.9 Seconds (25.6-37.1) 01/15/18 02:00 Sodium 138 mmol/l (132-148) 01/16/18 05:20 Potassium 4.2 MMOL/L (3.6-5.0) 01/16/18 05:20 Chloride 102 mmol/L (98-107) 01/16/18 05:20 Carbon Dioxide 26 mmol/L (22-30) 01/16/18 05:20 Anion Gap 14 (10-20) 01/16/18 05:20 BUN 14 mg/dl (9-20) 01/16/18 05:20 Creatinine 0.8 mg/dl (0.8-1.5) 01/16/18 05:20 Est GFR ( Amer) > 60 01/16/18 05:20 Est GFR (Non-Af Amer) > 60 01/16/18 05:20 POC Glucose (mg/dL) 157 mg/dL (65-110) H 01/16/18 05:41 Random Glucose 168 mg/dL (75-110) H 01/16/18 05:20 Hemoglobin A1c 7.9 % (4.2-6.5) H 01/15/18 02:00 Calcium 8.9 mg/dL (8.4-10.2) 01/16/18 05:20 Total Bilirubin 0.8 mg/dl (0.2-1.3) 01/15/18 02:00 AST 38 U/L (17-59) 01/15/18 02:00 ALT 30 U/L (21-72) 01/15/18 02:00 Alkaline Phosphatase 102 U/L (38-126) 01/15/18 02:00 Troponin I < 0.0120 ng/mL (0.00-0.120) 01/15/18 02:00 Total Protein 8.2 G/DL (6.3-8.2) 01/15/18 02:00 Albumin 4.6 g/dL (3.5-5.0) 01/15/18 02:00 Globulin 3.6 gm/dL (2.2-3.9) 01/15/18 02:00 Albumin/Globulin Ratio 1.3 (1.0-2.1) 01/15/18 02:00 Triglycerides 111 mg/DL (0-149) 01/15/18 02:00 Cholesterol 146 mg/dL (0-199) 01/15/18 02:00 LDL Cholesterol Direct 75 mg/dL (0-129) 01/15/18 02:00 HDL Cholesterol 46 MG/DL (30-70) 01/15/18 02:00 Vitamin B12 233 pg/mL (239-931) L 01/15/18 07:13 Blood Type O POSITIVE 01/15/18 02:00 Antibody Screen Negative 01/15/18 02:00 BBK History Checked No verified bt 01/15/18 02:00 - Hospital Course Hospital Course: 67 years old male with Hx of DM II, comes with 30mins of sudden unset of slurred speech with lightheadedness and blurring of the vision. no weakness of the extremities, no chest pain nor SOB, no headache. His symptoms were 75% relieved on arriving at the ED and completely resolved 20mins later. his NIHSS score was 0 in the ED. #. TIA - Consulted Neurology Dr León - CT head : Hyperdense MCA - CTA Head and Neck: No significant stenosis - MRI Brain : No acute Infarct - Neuro check Q1H - ECHO: normal LV fxn, mild diastolic dysfunction, mild MR - started on ASA, Plavix, Lipitor - pt monitored closely in Tele - symptoms resolved completely #. DM type II - Lispro insulin sliding scale according to Accucheck - cont Meformin B12 Deficiency B12 shot given daily BMI 36.9, Obesity counsled on diet, need to lose weight #. DVT prophylaxis with Lovenox Discharge Exam - Head Exam Head Exam: ATRAUMATIC, NORMAL INSPECTION, NORMOCEPHALIC - Eye Exam Eye Exam: EOMI, Normal appearance Pupil Exam: NORMAL ACCOMODATION - ENT Exam ENT Exam: Mucous Membranes Moist, Normal External Ear Exam - Neck Exam Neck exam: Full Rom - Respiratory Exam Respiratory Exam: NORMAL BREATHING PATTERN. absent: Respiratory Distress - Cardiovascular Exam Cardiovascular Exam: REGULAR RHYTHM, +S1, +S2 - GI/Abdominal Exam GI & Abdominal Exam: Normal Bowel Sounds - Extremities Exam Extremities exam: full ROM, normal capillary refill, pedal pulses present - Back Exam Back exam: FULL ROM. absent: CVA tenderness (L), CVA tenderness (R) - Neurological Exam Neurological exam: Alert, CN II-XII Intact, Oriented x3, Reflexes Normal - Psychiatric Exam Psychiatric exam: Normal Affect, Normal Mood - Skin Skin Exam: Dry, Normal Color, Warm Discharge Plan - Discharge Medications Prescriptions: Aspirin [Ecotrin] 81 mg PO DAILY@1500 #100 tabec Atorvastatin [Lipitor] 20 mg PO HS #30 tab Clopidogrel [Plavix] 75 mg PO DAILY@1500 #30 tab Cyanocobalamin (Vitamin B-12) [B-12] 1,000 mcg PO DAILY #30 tablet.er - Follow Up Plan Condition: GOOD Disposition: HOME/ ROUTINE Instructions: Transient Ischemic Attack (DC) Additional Instructions: ff up with Dr Murrieta in [address] Sanford carter Thyroid Sonogram as outpt to ff up on Thyroid nodule seen on CT scan appt with Dr Santacruz Referrals: Darron Murrieta MD [Medical Doctor] - Greg Christina MD [Primary Care Provider] - Hailey Santacruz MD [Medical Doctor] - Clinical Quality Measures - CQM - Stroke Antithrombotic Prescribed: Yes Anticoagulation Prescribed for Atrial Flutter, Atrial Fibrillation and History of:: Not Applicable Statin prescribed: Yes
[2018-01-16 11:48] VITALS: O2SAT 95
[2018-01-16 13:02] VITALS: BP 131/89; PULSE 92; RESP 20; TEMP 98.4
[2018-01-16 22:56] LABS: FOLATE 6.1 ng/mL
== END 2018-01-16 14:06 | disposition home or self-care (01) ==
LOC: H.ER 01:42 → H.ERHOLD 02:18 → INTOOBSV 02:18 → H.TEL 18:36
PROVIDERS: ADMIT Internal Medicine; ATTEND Internal Medicine
DX: G45.9 Transient cerebral ischemic attack, unspecified (principal); E04.1 Nontoxic single thyroid nodule; E53.8 Deficiency of other specified B group vitamins; E11.9 Type 2 diabetes mellitus without complications; E66.01 Morbid (severe) obesity due to excess calories; Z68.36 Body mass index [BMI] 36.0-36.9, adult; Z87.891 Personal history of nicotine dependence; Z79.82 Long term (current) use of aspirin; Z79.02 Long term (current) use of antithrombotics/antiplatelets; Z79.84 Long term (current) use of oral hypoglycemic drugs
CPT/HCPCS: 36415; 70450; 70496; 70498; 70551; 71045; 80048; 80053; 80061; 82607; 82746; 82948; 83036; 83090; 84484; 85025; 85027; 85610; 85730; 86850; 86900; 93005; 93306; 96360; 96361; 96372; 97161; 99285; G0378; G8978; G8979; G8980; J1650; J3420; J7030; Q9967